=== PATIENT | female | born 1985 ===

== ENCOUNTER → 2017-11-08 | Outpatient (CLI) | payer OTHER ==
--- NOTE | 2017-11-08 15:14 | MAMMOGRAPHY REPORT ---
UNILATERAL LEFT DIGITAL DIAGNOSTIC MAMMOGRAM TOMOSYNTHESIS WITH CAD AND TARGETED LEFT ULTRASOUND: 10/27 CLINICAL HISTORY: 32-year-old woman presents with a palpable lump in the upper outer quadrant of the left breast which she has noticed for approximately 1 month. No skin erythema, thickening or nipple discharge. Family history of breast cancer = maternal aunt. TECHNIQUE: Left breast tomosynthesis in addition to standard 2D mammography was performed. Current st udy was also evaluated with a Computer Aided Detection (CAD) system. COMPARISON: No prior exams were available for comparison. BREAST COMPOSITION: The tissue of the left breast is heterogeneously dense, which may obscure small masses. FINDINGS: A triangular palpable marker overlies the upper outer middle one third of the left breast, denoting the palpable lump pointed out by the patient. Mammographically, there is a partially circum scribed, gently lobulated mass measuring 3.0 cm in craniocaudal by 2.4 cm in transverse by 2.6 cm in AP dimension. No associated calcification or spiculation. Further characterization with ultrasound was performed. There are also scattered benign-appearing punctate microcalcifications in the left breast. No areas of architectural distortion or other obvious mass. Targeted ultrasound was performed in the left 2:00 breast, 5 cm from the nipple, in the area of palpa ble lump pointed out by the patient. On palpation there is a walnut sized discrete mobile mass. On ultrasound, there is a lobulated, parallel, circumscribed hypoechoic solid mass measuring 2.6 x 1.4 x 2.6 cm. This corresponds to the mass identified mammographically and is indeterminate. Although th is most likely represents a benign fibroadenoma, definitive characterization with an ultrasound-guide d core biopsy is recommended. IMPRESSION: ACR BI-RADS CATEGORY 4: SUSPICIOUS, TARGETED ULTRASOUND ACR BI-RADS CATEGORY 4: SUSPICIO US 1. Ultrasound-guided core biopsy is recommended for a solid palpable 2.6 cm mass in the 2:00 left br east, 5 cm from the nipple. These results and recommendations were discussed with the patient at the time of the exam. She tenta tively scheduled the biopsy prior to leaving our department. Approximately 10% of breast cancers are not detected with mammography. A negative mammographic report should not delay biopsy if a clinically suggestive mass is present. Sandhya Potts M.D. ay/:11/08/2017 09:38:05 Home Office Claims Examiner: Nathan Serrano RT(R)(M), [facility] letter sent: Abnormal 4/5 BI-RADS Code: ACR BI-RADS Category 4: Suspicious Ultrasound BI-RADS: ACR BI-RADS Category 4: Suspici ous
== END | disposition home or self-care (01) ==
LOC: C.MAMM 08:35
PROVIDERS: ATTEND Internal Medicine
DX: R92.8 Other abnormal and inconclusive findings on diagnostic imaging of breast (principal); N63.20 Unspecified lump in the left breast, unspecified quadrant

== ENCOUNTER → 2017-11-15 | Outpatient (CLI) | payer OTHER ==
--- NOTE | 2017-11-15 13:19 | Discharge Instructions ---
Discharge Instructions Procedure Procedure Date: Nov 15, 2017. Reason for visit: Left Mass. Discharge Discharge Date: Nov 15, 2017. Discharge Diagnosis: status post breast biopsy Instructions Activity Recommendations: Additional Limitations (see below) Return to School/Work: no limitations Recommended Home Diet: No Limitations Provider Instructions: ACTIVITY RECOMMENDATIONS: * No lifting, pushing, pulling or exercising the affected side for three days. RETURN TO SCHOOL/WORK: * You may return to work/school after the procedure, but do not perform any strenuous activities for 24 to 48 hours. MEDICATIONS: * Tylenol (two 325 mg) every four to six hours if needed for mild pain (if not allergic to Tylenol). DIET: * Resume previous diet. SPECIAL CARE INSTRUCTIONS: * Keep biopsy site dry for 24 hours. May shower after 24 hours, but do not soak (bathe) incision. * May remove Tegaderm (plastic patch) tomorrow AFTER showering. * Leave the steri-strips on for one week. Allow the steri-strips to fall off by themselves. If not off after one week, you may remove them. You may place a Bandaid crosswise over the strips, if desired. * Apply ice 10 minutes on and 10 minutes off as needed. * Wear a bra at bedtime to sleep more comfortably for 2-3 days. * Your referring physician should have the results after approximately 5 to 7 business days. * Call for unusual bleeding, fever, drainage, etc or if you have any questions call during normal business hours or after hours call Dr Riggs, [phone]. FOLLOW UP VISIT: Follow-up with Referring Physician as scheduled. Sarah Gregorioy Recommendations: Call your doctor if: * Temperature above 101 degrees * Pain not relieved by pain medicine ordered * There is increased drainage or redness from any incision * You have any unanswered questions or concerns. Your Doctors Instructions noted above were prepared by provider Sharon Riggs. Patient Signature Section: Patient Instructions Signature Page Sis Huston Patient (or Guardian) Signature/Date: I have read and understand the instructions given to me by my caregivers. Caregiver/RN/Doctor Signature/Date: The above-named patient and/or guardian has received patient instructions on this date. + Original Patient Signature Page (only) stays with chart. Please make copy for patient.
--- NOTE | 2017-11-15 14:58 | MAMMOGRAPHY REPORT ---
ULTRASOUND GUIDED BIOPSY LEFT BREAST: 11/15/2017 CLINICAL HISTORY: Left 2:00 breast mass. PATIENT CONSENT: The procedure, risks and benefits were discussed with the patient and informed writt en consent was obtained. A timeout was performed immediately prior to the procedure. PROCEDURE DESCRIPTION: With ultrasound guidance, aseptic technique, and lidocaine as the local anesth etic (1% lidocaine to anesthetize the skin and 1% lidocaine with epinephrine to anesthetize the deepe r tissues), the mass of concern in the left 2:00 breast was sampled 3 times with a 14-gauge Achieve b iopsy needle. Immediately thereafter, with ultrasound guidance, aseptic technique, and lidocaine as the local anesthetic, a metallic localizer clip was placed centrally in the mass. Direct pressure wa s applied to the site immediately post procedure and hemostasis was achieved. The patient tolerated t he procedure without complication. She was given wound care instructions. The specimens were sent to pathology for analysis. COMPARISON: Comparison is made to exams dated: 11/08/2017 mammogram and 11/08/2017 ultrasound - [facility]. IMPRESSION: ULTRASOUND GUIDED BIOPSY Ultrasound-guided core needle biopsy of the left 2:00 breast mass, with clip placement. The patient will receive pathology results from her referring provider. Sharon Riggs M.D. /:11/15/2017 13:20:45 Pig Machine Operator: Barbara Torres, [facility]
== END | disposition home or self-care (01) ==
LOC: C.MAMM 12:50
PROVIDERS: ATTEND Physician Assistant Medical
DX: D24.2 Benign neoplasm of left breast (principal)

== ENCOUNTER → 2018-01-13 | Outpatient (CLI) | payer OTHER ==
[~2018-01-13] MED LIST: CETI10TA84 PO
== END | disposition home or self-care (01) ==
LOC: C.PAPS 17:28
PROVIDERS: ATTEND Obstetrics & Gynecology
DX: O09.511 Supervision of elderly primigravida, first trimester (principal); Z3A.00 Weeks of gestation of pregnancy not specified

== ENCOUNTER → 2018-01-13 | Outpatient (CLI) | payer OTHER ==
[2018-01-13 16:31] LABS: BASO % 0.2 %; BASO ABS # 0.02 K/uL (0-0.2); EOS % 3.4 %; EOS ABS # 0.39 K/uL (0-0.5); HEMATOCRIT 36.7 % (37-47); HEMOGLOBIN 13.3 g/dL (12.0-16.0); IG# 0.03 K/uL (0.00-0.02); LYMPH % 19.1 %; LYMPH ABS # 2.22 K/uL (1.2-3.4); MEAN CELL VOLUME 77.1 fL (80-100); MEAN CORPUSCULAR HEMOGLOBIN 27.9 pg (25-34); MEAN CORPUSCULAR HGB CONC 36.2 g/dl (32-36); MEAN PLATELET VOLUME 9.5 fL (7.4-10.4); NEUT ABS # 8.26 K/uL (1.4-6.5); PLATELET COUNT 326 K/uL (130-400); RED CELL DISTRIBUTION WIDTH CV 13.4 % (11.5-14.5); RED CELL DISTRIBUTION WIDTH SD 37.5 fL (36.4-46.3); WHITE BLOOD COUNT 11.62 K/uL (4.8-10.8)
== END | disposition home or self-care (01) ==
LOC: C.LAB1850 15:54
PROVIDERS: ATTEND Obstetrics & Gynecology
DX: O09.511 Supervision of elderly primigravida, first trimester (principal); Z3A.00 Weeks of gestation of pregnancy not specified

== ENCOUNTER 2018-01-18 23:34 | Emergency (ER) | payer OTHER ==
[~2018-01-18] VITALS: Ht 162.6 cm; Wt 62.1 kg
[2018-01-18 23:40] VITALS: TEMP 36.7; Ht 162.6 cm; Wt 62.1 kg
[2018-01-18] MEDS ORDERED: CETI10TA84 PO (23:54)
[2018-01-19 00:09] LABS: BASO % 0.2 %; BASO ABS # 0.02 K/uL (0-0.2); EOS % 3.8 %; EOS ABS # 0.43 K/uL (0-0.5); HEMATOCRIT 35.4 % (37-47); HEMOGLOBIN 12.8 g/dL (12.0-16.0); IG# 0.03 K/uL (0.00-0.02); LYMPH % 21.5 %; LYMPH ABS # 2.43 K/uL (1.2-3.4); MEAN CELL VOLUME 76.3 fL (80-100); MEAN CORPUSCULAR HEMOGLOBIN 27.6 pg (25-34); MEAN CORPUSCULAR HGB CONC 36.2 g/dl (32-36); MEAN PLATELET VOLUME 9.2 fL (7.4-10.4); MONO % 7.7 %; MONO ABS # 0.87 K/uL (0.11-0.59); NEUT % 66.5 %; NEUT ABS # 7.51 K/uL (1.4-6.5); PLATELET COUNT 287 K/uL (130-400); RED CELL DISTRIBUTION WIDTH CV 13.4 % (11.5-14.5); WHITE BLOOD COUNT 11.29 K/uL (4.8-10.8)
--- NOTE | 2018-01-19 00:33 | EMERGENCY ROOM VISIT NOTE ---
History First contact with patient: 23:43 Chief Complaint: ED VAG BLEEDING Stated Complaint: HEAVY BLEEDING DUE TO INDUCED MISCARRIAGE History of Present Illness The patient is a 32 year old female who presents to the Emergency Room with complaints of heavy vaginal bleeding. The patient reports that she has been for the past 9 weeks. She states that for the past 2 weeks, she has been observed because she was told it was an abnormal . There was no growth after 6 weeks. She was administered a medicine for medically induced miscarriage approximately 12 hours ago while in the office. She states that the bleeding was initially like a normal menstrual period, but has increased over the past 2-3 hours. She states that she has been bleeding heavily and has passed for clots the size of small oranges. She has been changing her pad 2-3 times per hour. She denies any lightheadedness, weakness, or passing out. She reports some abdominal cramping and rates the discomfort as 7/10. She has taken Tylenol which helps her pain. She states that she had one other which also ended in a medically induced , but she does not remember the bleeding being as heavy. She denies any history of bleeding or clotting disorders. Review of Systems A complete 10 point review of systems was reviewed with the patient with pertinent positives and negatives as per history of present illness. All else were negative. Past Medical/Surgical History Medical Problems: (1) No significant active problems Social History Smoking Status: Never Smoker Marital Status: Housing Status: lives with family Current/Historical Medications Scheduled Cetirizine (Zyrtec), 10 MG PO DAILY Physical Exam Vital Signs Date Time Temp Pulse Resp B/P (MAP) Pulse Ox O2 Delivery O2 Flow Rate FiO2 01/19/18 01:07 79 16 116/73 98 Room Air 01/18/18 23:40 36.7 80 18 120/77 97 Room Air Physical Exam VITALS: Vitals are noted on the nurse's note and reviewed by myself. Vital signs stable. GENERAL: This is a 32-year-old female, in no acute distress, nondiaphoretic, well-developed well-nourished. SKIN: The skin was without rashes. HEART: Regular rate and rhythm without murmurs gallops or rubs. LUNGS: Clear to auscultation bilaterally without wheezes, rales or rhonchi. ABDOMEN: Positive bowel sounds x 4. Soft, minimal tenderness to palpation across the lower abdomen. No guarding or rebound tenderness. PELVIC: Cervix open, moderate amount of bleeding and a few small clots in the vaginal vault. NEURO: Patient was alert and oriented to person place and time. Medical Decision & Procedures Laboratory Results 01/18/18 23:55 Red Blood Count 4.64, Mean Corpuscular Volume 76.3, Mean Corpuscular Hemoglobin 27.6, Mean Corpuscular Hemoglobin Concent 36.2, Mean Platelet Volume 9.2, Neutrophils (%) (Auto) 66.5, Lymphocytes (%) (Auto) 21.5, Monocytes (%) (Auto) 7.7, Eosinophils (%) (Auto) 3.8, Basophils (%) (Auto) 0.2, Neutrophils # (Auto) 7.51, Lymphocytes # (Auto) 2.43, Monocytes # (Auto) 0.87, Eosinophils # (Auto) 0.43, Basophils # (Auto) 0.02 01/18/18 23:55 Test 01/18/18 23:55 White Blood Count 11.29 K/uL (4.8-10.8) Red Blood Count 4.64 M/uL (4.2-5.4) Hemoglobin 12.8 g/dL (12.0-16.0) Hematocrit 35.4 % (37-47) Mean Corpuscular Volume 76.3 fL (80-100) Mean Corpuscular Hemoglobin 27.6 pg (25-34) Mean Corpuscular Hemoglobin Concent 36.2 g/dl (32-36) Platelet Count 287 K/uL (130-400) Mean Platelet Volume 9.2 fL (7.4-10.4) Neutrophils (%) (Auto) 66.5 % Lymphocytes (%) (Auto) 21.5 % Monocytes (%) (Auto) 7.7 % Eosinophils (%) (Auto) 3.8 % Basophils (%) (Auto) 0.2 % Neutrophils # (Auto) 7.51 K/uL (1.4-6.5) Lymphocytes # (Auto) 2.43 K/uL (1.2-3.4) Monocytes # (Auto) 0.87 K/uL (0.11-0.59) Eosinophils # (Auto) 0.43 K/uL (0-0.5) Basophils # (Auto) 0.02 K/uL (0-0.2) RDW Standard Deviation 37.0 fL (36.4-46.3) RDW Coefficient of Variation 13.4 % (11.5-14.5) Immature Granulocyte % (Auto) 0.3 % Immature Granulocyte # (Auto) 0.03 K/uL (0.00-0.02) Anion Gap 7.0 mmol/L (3-11) Est Creatinine Clear Calc Drug Dose 134.3 ml/min Estimated GFR () 145.4 Estimated GFR (Non- 125.5 BUN/Creatinine Ratio 9.6 (10-20) Calcium Level 8.2 mg/dl (8.5-10.1) Total Bilirubin 0.3 mg/dl (0.2-1) Aspartate Amino Transf (AST/SGOT) 14 U/L (15-37) Alanine Aminotransferase (ALT/SGPT) 24 U/L (12-78) Alkaline Phosphatase 44 U/L (45-117) Total Protein 6.7 gm/dl (6.4-8.2) Albumin 3.3 gm/dl (3.4-5.0) Globulin 3.4 gm/dl (2.5-4.0) Albumin/Globulin Ratio 1.0 (0.9-2) Medical Decision Differential diagnosis includes medical , incomplete , anemia, among others. The patient is a 32-year-old female who presents today complaining of vaginal bleeding after a chemical . Labs revealed a minimal decrease in her hemoglobin. Hemoglobin is 12.8 today and was 13.3 five days ago. Labs otherwise unremarkable. Patient hemodynamically stable. Blood type is AB+, performed 5 days ago as well. Pelvic examination showed moderate amount of bleeding, but nothing significantly heavy. I feel that the patient's amount of bleeding as expected for the situation. She was advised to contact OB in the morning to touch base with them. She will return for any heavier bleeding, lightheadedness, or presyncope. The patient's case was reviewed with Dr. Wheat, ED attending physician, who agreed with my assessment and treatment plan. Based on the patient's presentation and work up, I feel the patient is stable for outpatient treatment. The patient was educated to return to the emergency department for any worsening of their current condition or new/concerning symptoms. She will follow up with KELLER MACHINE OPERATOR. Medication Reconcilliation Current Medication List: was personally reviewed by me Blood Pressure Screening Patient's blood pressure: Normal blood pressure Impression Primary Impression: Vaginal bleeding Departure Information Dispostion Home / Self-Care Condition GOOD Referrals [facility] (PCP) Alejandra Figueroa M.D.(DELIVERY DEPARTMENT SUPERVISOR/OB) Patient Instructions My [facility] Additional Instructions Contact KELLER MACHINE OPERATOR in the morning to let them know that you were here and to arrange follow-up. For pain control, you can use the following [id number] medicines (if >12 yo): - Regular strength (325mg/tab) Tylenol (acetaminophen) 2 tabs every 4-6 hours as needed. Do not exceed 12 tablets in a 24 hour period. Avoid taking more than 4 grams (4000 mg) of Tylenol per day. This includes any other sources of acetaminophen you may take on a regular basis. - Regular strength (200 mg/tab) Advil (ibuprofen) 1-2 tabs every 4-6 hours as needed. Do not exceed a dose of 3200 mg per day. Return here for worsening bleeding, lightheadedness, dizziness, passing out, severe pain or any other new/concerning symptoms.
[2018-01-19 00:51] LABS: ALBUMIN 3.3 gm/dl (3.4-5.0); CALCIUM 8.2 mg/dl (8.5-10.1); CREATININE 0.51 mg/dl (0.60-1.20); POTASSIUM 3.9 mmol/L (3.5-5.1); TOTAL PROTEIN 6.7 gm/dl (6.4-8.2)
[2018-01-19 01:07] VITALS: BP 116/73; PULSE 79; O2SAT 98
== END 2018-01-19 01:14 | disposition home or self-care (01) ==
LOC: C.EDB 23:35 → C.EDA 01-19 01:14
DX: O03.6 Delayed or excessive hemorrhage following complete or unspecified spontaneous abortion (principal); Z79.899 Other long term (current) drug therapy